=== PATIENT | male | born 1940 | race Two or more races ===

== ENCOUNTER 2021-09-19 13:13 | Emergency (ER) | payer MEDICARE ==
[~2021-09-19] VITALS: Ht 177.8 cm; Wt 90.6 kg
[2021-09-19 13:34] VITALS: BP 127/82
== END 2021-09-19 19:42 | disposition left against medical advice (07) ==
LOC: ER 13:14
DX: M54.9 Dorsalgia, unspecified (principal); Z53.21 Procedure and treatment not carried out due to patient leaving prior to being seen by health care provider